=== PATIENT | female | born 1985 | race Caucasian/White ===

== ENCOUNTER 2019-12-30 18:14 | Emergency (ER) | payer BC, SELFPAY ==
[2019-12-30 18:25] VITALS: BP 125/74; PULSE 84; RESP 16; TEMP 37.3; O2SAT 98
--- NOTE | 2019-12-30 18:33 | ED.SKABFB ---
HPI - Skin/Abscess/Foreign Bdy General Chief complaint: Skin/Abscess/Foreign Body Stated complaint: Bite Time Seen by Provider: 12/30/19 18:29 Source: patient and RN notes reviewed Mode of arrival: ambulatory Limitations: no limitations History of Present Illness HPI narrative: Patient presents today complaining of an infected insect bite to her right flank 3 days ago. She is unsure what bit or stung her, but she spent the evening at a democrat at [employer]. She has been taking Tylenol without relief. Currently rates her pain 12/25. complaint: insect bite/sting Related Data Allergies Allergy/AdvReac Type Severity Reaction Status Date / Time clarithromycin Allergy Mild Rash Verified 12/30/19 18:18 sulfamethoxazole Allergy Mild RASH Verified 12/30/19 18:18 trimethoprim Allergy Mild RASH Verified 12/30/19 18:18 Review of Systems Review of Systems: Narrative: CONSTITUTIONAL: Denies body aches, fever, chills, or sweats. EYES: Denies visual changes, redness, or discharge. ENT: Denies rhinorrhea, congestion, sore throat, or otalgia. CARDIOVASCULAR: Denies chest pain, palpitations, or edema. RESPIRATORY: Denies cough or dyspnea. GASTROINTESTINAL: Denies abdominal pain, nausea, vomiting, or diarrhea. GENITOURINARY: Denies dysuria or hematuria. SKIN: + Insect bite and redness to right flank MUSCULOSKELETAL: Denies back pain, joint pain, or myalgia. NEUROLOGIC: Denies headache, numbness, tingling, or weakness. PSYCH: Denies depression or anxiety. PMFSH Social History Social History Gender identity (if verbalized by the patient): Female Comments At time of signature, I have reviewed and agree with nursing past medical, surgical, social and family history unless otherwise noted. Please see nursing chart for further information. There is no relevant family history pertinent to the presenting complaint Exam Narrative: Exam Narrative: GENERAL: Well-appearing, well-nourished, and in no acute distress. HEAD: Normocephalic, atraumatic. EYES: EOMI. No redness or drainage. Conjunctivae normal. ENT: Mucous membranes pink and moist. NECK: Normal AROM. CHEST: No respiratory distress. EXTREMITIES: Normal range of motion. No edema. SKIN: Warm, dry. Capillary refill normal. Normal skin turgor. 11 x 4 cm area of erythema to the right lateral flank with central area of 5 x 2 cm of induration. Entire area is tender. No fluctuance or drainage. This area does not need lanced at this time. NEURO: No focal deficits. Alert and oriented x3. Gait steady. PSYCH: Normal affect. No signs of depression or anxiety. Course Vital Signs Vital signs: Vital Signs Temperature 99.2 F 12/30/19 18:25 Pulse Rate 84 12/30/19 18:25 Respiratory Rate 16 12/30/19 18:25 Blood Pressure 125/74 12/30/19 18:25 Pulse Oximetry 98 12/30/19 18:25 Temperature 99.2 F 12/30/19 18:25 Pulse Rate 84 12/30/19 18:25 Respiratory Rate 16 12/30/19 18:25 Blood Pressure 125/74 12/30/19 18:25 Pulse Oximetry 98 12/30/19 18:25 Reviewed. Pt has been instructed to follow up with her PCP regarding her elevated blood pressure today. MDM - Skin/Abscess/Foreign Bdy Differential Diagnosis Differential diagnosis: Likely abscess of skin or subcutaneous tissue, urticaria, herpes zoster, cellulitis, eczema, insect bites, impetigo and contact dermatitis Critical Care Time Critical Care Time Critical Care Time: No Discharge Plan Discharge Clinical Impression: Cellulitis Qualifiers: Site of cellulitis: trunk Site of cellulitis of trunk: chest wall Qualified Code(s): L03.313 - Cellulitis of chest wall Insect bites Qualifiers: Encounter type: initial encounter Site of insect bite: thoracic wall Site of insect bite of thoracic wall: back wall Laterality: right Qualified Code(s): S20.461A - Insect bite (nonvenomous) of right back wall of thorax, initial encounter Patient Disposition: Home, Self-Care Condition: Stable Instructions:
== END 2019-12-30 18:39 | disposition home or self-care (01) ==
PROVIDERS: Emergency Provider Nurse Practitioner
DX: L03.312 Cellulitis of back [any part except buttock and flank] (principal); S20.461A Insect bite (nonvenomous) of right back wall of thorax, initial encounter; L08.9 Local infection of the skin and subcutaneous tissue, unspecified
CPT/HCPCS: 99213; G0463